=== PATIENT | female | born 1990 | race Caucasian/White ===

== ENCOUNTER 2016-10-04 06:25 | Inpatient (IN) | payer OTHER ==
[2016-10-04] VITALS (7 sets, daily range): BP systolic 99–128; BP diastolic 52–84
[~2016-10-04] VITALS: Ht 160 cm; Wt 77.5 kg
[2016-10-04] MEDS ORDERED: ENDOCET 5-3251 EACH PO (09:22)
[2016-10-04] MEDS ORDERED: IBUPROFEN800 MG PO (09:22)
[2016-10-05 07:15] VITALS: BP 113/76
[2016-10-05 07:29] LABS: EOSINOPHIL (%) 1.2 % (0-5); EOSINOPHIL COUNT 0.1 K/uL (0-0.3); HEMATOCRIT 30.2 % (36.0-46.0); IMMATURE GRANULOCYTE (%) 0.6 % (0.0-0.7); IMMATURE GRANULOCYTE COUNT 0.1 K/uL; INSTRUMENT ABS NEUTROPHIL CT 6.7 K/uL; LYMPHOCYTE COUNT 2.4 K/uL (1.0-2.8); MCH 31.7 PG (29.0-34.0); MCHC 33.1 G/DL (30.0-36.0); MCV 95.9 FL (83-99); MEAN PLAT.VOLUME 9.3 uM^3 (9.5-12.4); MONOCYTE (%) 7.7 % (3-12); MONOCYTE COUNT 0.8 K/uL (0-0.8); NEUTROPHIL (%) 66.1 % (45-76); NEUTROPHIL COUNT 6.7 K/uL (1.8-6.4); RBC DIS.WIDTH-CV 12.7 % (11.8-14.6); RBC DIS.WIDTH-SD 43.7 % (39-53); WHITE BLOOD COUNT 10.2 K/uL (4.1-10.2)
[2016-10-05 07:42] LABS: PLATELET COUNT 211 K/uL (156-360); RED BLOOD COUNT 3.15 M/uL (3.80-5.20)
[2016-10-05 11:15] VITALS: BP 112/73
[2016-10-05 16:15] VITALS: BP 120/77
[2016-10-05 19:00] VITALS: BP 106/58
[2016-10-05 23:00] VITALS: BP 113/63
[2016-10-06 03:00] VITALS: BP 112/71
[2016-10-06 07:38] VITALS: BP 109/64
== END 2016-10-06 12:20 | disposition home or self-care (01) | DRG 765 ==
LOC: 2SOUTH → 2WEST 06:25 → 2SOUTH 10:12 → 2WEST 10-06 12:20
PROVIDERS: Obstetrics & Gynecology
PROC: 10D00Z1 Extraction of Products of Conception, Low, Open Approach (ICD-10-PCS; principal; 2016-10-04)
DX: O34.211 Maternal care for low transverse scar from previous cesarean delivery (principal); O98.32 Other infections with a predominantly sexual mode of transmission complicating childbirth; O99.344 Other mental disorders complicating childbirth; N85.8 Other specified noninflammatory disorders of uterus; O99.824 Streptococcus B carrier state complicating childbirth; F53 Mental and behavioral disorders associated with the puerperium, not elsewhere classified; F41.8 Other specified anxiety disorders; Z3A.39 39 weeks gestation of pregnancy; Z37.0 Single live birth
CPT/HCPCS: 36415; 81003; 85025; 86900; 86901; J1580; J2175; J2274; J2405; J3010; J7050; J7120